=== PATIENT | female | born 1970 | race Hispanic/Latino ===

== ENCOUNTER 2018-05-04 17:07 | Observation (INO) | payer BC ==
[~2018-05-04] VITALS: Ht 152.4 cm; Wt 93.0 kg
[~2018-05-04 17:07] MED LIST: ATENOLOL50 MG PO; AZITHROMYCIN250 MG PO; BENZONATATE100 MG PO; FEXOFENADINE H180 MG PO; FLUTICASONE PRO16 GM; HYDROCODONE-AP1 EA17 PO; MOBIC7.5 M1 PO; PEPCID20 MG PO; REGLAN10 MG PO; TYLENOL WITH C1 EACH PO; Z.0.ARAVA20 MG PO; Z.0.CELEXA20 MG PO; Z.0.LISINOPRIL10 MG PO
[2018-05-04] MEDS ORDERED: ASPIRIN 81 MG CHEW TAB PO ONE (17:45)
[2018-05-04 18:46] LABS: BASOPHILS % 0.3 % (0.0-1.0); EOSINOPHILS # (AUTO) 0.1 (0.0-0.4); EOSINOPHILS % 0.7 % (0.0-6.0); HEMATOCRIT 40.1 % (34.2-44.1); HEMOGLOBIN 12.9 g/dL (12.0-16.0); LYMPHOCYTES # (AUTO) 2.9 (1.0-3.2); MEAN CORPUSCULAR HEMOGLOBIN 27.2 pg (28-32); MEAN CORPUSCULAR HGB CONC 32.2 g/dL (31-35); MEAN CORPUSCULAR VOLUME 84.6 fL (81-99); MONOCYTES # (AUTO) 0.5 (0.2-0.8); MONOCYTES % 6.2 % (4.4-11.3); NEUTROPHILS # (AUTO) 5.2 (2.1-6.9); NEUTROPHILS % 59.6 % (38.7-80.0); PLATELET COUNT 273 x10e3/uL (140-360); RED BLOOD COUNT 4.74 x10e6/uL (3.6-5.1)
--- NOTE | 2018-05-04 19:04 | Diagnostic Imaging Report ---
Examination: Single AP view of the chest. COMPARISON: None. INDICATION: Chest AP DISCUSSION: Lines/tubes: None. Lungs: The lungs are well inflated and clear. No pneumonia or pulmonary edema. Pleura: No pleural effusion or pneumothorax. Heart and mediastinum: The heart and the mediastinum are unremarkable. Bones and soft tissues: No acute bony abnormalities. IMPRESSION: 1. No acute cardiopulmonary abnormalities. Signed by: Dr. Mingo Mayes M.D. on 05/04/2018 7:01 PM
[2018-05-04 19:05] LABS: ALANINE AMINOTRANSFERASE 33 IU/L (0-55); ALBUMIN 4.2 g/dL (3.5-5.0); ALBUMIN/GLOBULIN RATIO 1.1 (0.8-2.0); ALKALINE PHOSPHATASE 74 IU/L (40-150); BLOOD UREA NITROGEN 12 mg/dL (7-26); BUN/CREATININE RATIO 17 (6-25); CALCIUM 9.6 mg/dL (8.4-10.2); CARBON DIOXIDE 21 mmol/L (22-29); CHLORIDE 103 mmol/L (98-107); CREATINE KINASE 58 IU/L (29-168); EST GLOMERULAR FILTRATION RATE > 60 ML/MIN (60-); GLUCOSE 108 mg/dL (74-118); SODIUM 137 mmol/L (136-145)
[2018-05-04] MEDS ORDERED: NITROGLYCERIN 0.4 MG SUBL SL PRN (20:00)
[2018-05-04] MEDS ORDERED: FLUTICASONE PROPIONATE NASAL SPRAY NS PRN (20:00)
[2018-05-04] MEDS ORDERED: MORPHINE SULFATE 2 MG/ML SYR IV PRN (20:00)
[2018-05-04] MEDS ORDERED: ONDANSETRON HCL INJ 2 MG/ML VIAL IV PRN (20:00)
[2018-05-04] MEDS ORDERED: HYDRALAZINE HCL 20 MG/ML VIAL IV PRN (20:00)
[2018-05-04] MEDS: FAMOTIDINE 20 MG/2 ML VIAL IV SCH (20:47)
[2018-05-04] MEDS ORDERED: ACETAMINOPHEN/CODEINE 300MG - 30MG TAB PO PRN (22:00)
[2018-05-04 23:15] VITALS: BP 153/70
[2018-05-05 03:43] LABS: CREATINE KINASE 48 IU/L (29-168)
[2018-05-05 04:04] LABS: CHOL/HDL RATIO 4.9 (3.0-3.6)
[2018-05-05 05:30] VITALS: BP 116/55
[2018-05-05 07:53] VITALS: BP 129/60
[2018-05-05 08:39] LABS: CHOL/HDL RATIO 4.5 (3.0-3.6)
[2018-05-05 08:59] LABS: THYROID STIMULATING HORMONE 2.741 uIU/mL (0.350-4.940)
[2018-05-05] MEDS ORDERED: ATENOLOL 50 MG TAB PO SCH ×2 (09:00)
[2018-05-05] MEDS ORDERED: LEFLUNOMIDE PO SCH (09:00)
[2018-05-05] MEDS ORDERED: ASPIRIN 81 MG ENTERIC COATED PO SCH (09:00)
[2018-05-05] MEDS: FAMOTIDINE 20 MG/2 ML VIAL IV SCH (09:01)
--- NOTE | 2018-05-05 09:35 | Consultation ---
DATE OF CONSULTATION: May 04, 2018 CARDIOLOGY CONSULTATION REASON FOR CONSULTATION: Chest pain. CONSULTING PHYSICIAN: Dr. Theodore HPI: This is a pleasant 48-year-old female that presented with uncontrolled high blood pressure. She was sent from [facility] due to high blood pressure to the emergency room for further evaluation. In the ER, also she started complaining of left-sided chest pain on a scale of 4/10 that radiated to her neck. She denied any palpitation, any shortness of breath, any headache, or diaphoresis. Troponin times 2 was negative. EKG showed normal sinus rhythm with no S/T abnormalities. Chest x-ray showed no cardiopulmonary abnormalities. PAST MEDICAL HISTORY: High blood pressure, obesity, fibromyalgia, and arthritis. PAST SURGICAL HISTORY: and hysterectomy. FAMILY HISTORY: Positive for hypertension. SOCIAL HISTORY: No smoking. No drinking. She lives at home with her . MEDICATIONS: She was on atenolol, Arava, and fluticasone, and Tylenol No. 3. ALLERGIES: SHE IS ALLERGIC TO PNEUMOCOCCAL VACCINE. REVIEW OF SYSTEMS: Negative except as mentioned above. PHYSICAL EXAMINATION VITAL SIGNS: Temperature 97, heart rate 52, blood pressure 116/55, respirations 18, oxygen saturation 97% on room air. GENERAL: She is awake, alert and oriented times 3. HEENT: Mucous membranes moist. NECK: Supple. LUNGS: Bilateral clear to auscultation. CARDIOVASCULAR: S1 and S2 present. ABDOMEN: Soft. NEUROLOGICAL: Intact. EXTREMITIES: With no edema. LABS: Sodium 137, potassium 4, chloride 103, CO2 21, BUN 12, creatinine 0.7, glucose 108. White blood cells 8.69, hemoglobin 12.9, hematocrit 40.1, and platelets 273,000. IMPRESSION 1. Hypertension. 2. Atypical chest pain. 3. Obesity. 4. History of fibromyalgia and arthritis. ASSESSMENT AND PLAN 1. Will go ahead and get serial cardiac enzymes. 2. Pending echo to assess the LV and the valve function. 3. Will check TSH and lipid panel. 4. Heart rate is in the 50s. Will go ahead and decrease atenolol from 50 mg to 25 mg. She has been counseled on weight reduction. Further cardiac workup pending clinical course. Thank you for this consultation. DICTATED BY CATHERINE SULTANA NP Job#: [id number] DELICIA
[2018-05-05 11:48] LABS: CREATINE KINASE 56 IU/L (29-168)
[2018-05-05 11:52] VITALS: BP 165/80
[2018-05-05] MEDS ORDERED: LOSARTAN POTASSIUM 25 MG TAB PO SCH (13:45)
[2018-05-05 16:01] VITALS: BP 169/74
[2018-05-05] MEDS ORDERED: LOSARTAN POTASS25 MG PO (16:21)
[2018-05-05 18:37] VITALS: BP 169/89
--- OUTSIDE RECORDS SUMMARY | 2018-05-09 13:14 | XMS REPORT ---
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 Allergies, Adverse Reactions, Alerts This patient has no known allergies or adverse reactions. Medications This patient has no known medications. Results Test Description Test Time Test Comments Text Results Atomic Results Result Comments CHEST SINGLE (PORTABLE) 2018-05-04 18:57:[address] [address] Patient Name: KIMBERLY ROMERO MR #: [id number] : 1970 Age/Sex: 48/F Req #: [id number] Adm Physician: Ordered by: RUDOPLH BRISCOE MD Report #: [id number] Location: ER Room/Bed: Procedure: [id number] DX/CHEST SINGLE (PORTABLE) Exam Date: 05/04/18 Exam Time: 1845 REPORT STATUS: Signed Examination: Single AP view of the chest. COMPARISON: None. INDICATION: Chest AP DISCUSSION: Lines/tubes: None. Lungs: The lungs are well inflated and clear. No pneumonia or pulmonary edema. Pleura: No pleural effusion or pneumothorax. Heart and mediastinum: The heart and the mediastinum are unremarkable. Bones and soft tissues: No acute bony abnormalities. IMPRESSION: 1. No acute cardiopulmonary abnormalities. Signed by: Dr. Irving Stuart M.D. on 05/04/2018 7:01 PM Dictated By: IRVING STUART MD 00 Transcribed By: LINDEN on 05/04/181900 COPY TO: RUDOLPH BRISCOE MD
--- NOTE | 2018-07-03 10:26 | Discharge Summary ---
FINAL DIAGNOSIS: Atypical chest pain, no acute myocardial infarction. SECONDARY DIAGNOSES 1. Uncontrolled hypertension, better. 2. Morbid obesity. RESIDENT SERVICES MANAGER: Dr. Burgos, cardiology. PROCEDURES/STUDIES PERFORMED: Echocardiogram, which was benign. HISTORY: Per H&P. HOSPITAL COURSE: Patient was evaluated by cardiology. Since she did not have acute myocardial infarction with 3 negative troponins, we felt comfortable for her to be discharged home. She will follow up with [facility] for outpatient stress test. I have informed her [facility] PCP about this as far as her uncontrolled hypertension. Patient was put on losartan instead of lisinopril. Her blood pressure got better. CONDITION ON DISCHARGE: Stable. DISCHARGE MEDICATIONS: Please see medication reconciliation form. BERNADETTE ZIMMER M.D. Job#: [id number] [place] cc:ALICIA ERNST M.D., [facility]
== END 2018-05-05 18:43 | disposition home or self-care (01) ==
LOC: ER 17:07 → ERHOLD 19:48 → MED/SURG 22:36
PROVIDERS: ADMIT Internal Medicine; ATTEND Internal Medicine
DX: R07.89 Other chest pain (principal); M79.7 Fibromyalgia; I10 Essential (primary) hypertension; Z88.7 Allergy status to serum and vaccine; M06.9 Rheumatoid arthritis, unspecified; E66.01 Morbid (severe) obesity due to excess calories; Z68.41 Body mass index [BMI] 40.0-44.9, adult
CPT/HCPCS: 36415 ×2; 71045; 80053; 80061; 82550 ×2; 82553 ×2; 84443; 84484 ×2; 85025; 93005; 93306; 99284; G0378 ×2; J0360

== ENCOUNTER 2019-02-13 16:38 | Observation (INO) | payer BC ==
[~2019-02-13] VITALS: Ht 152.4 cm; Wt 93.0 kg
[~2019-02-13 16:38] MED LIST changes: +LOSARTAN POTASS25 MG PO
[2019-02-13] MEDS ORDERED: HYDRALAZINE HCL 20 MG/ML VIAL IV STA (17:03)
[2019-02-13 17:05] LABS: BASOPHILS % 0.4 % (0.0-1.0); EOSINOPHILS # (AUTO) 0.1 (0.0-0.4); EOSINOPHILS % 1.1 % (0.0-6.0); HEMATOCRIT 41.8 % (34.2-44.1); HEMOGLOBIN 13.5 g/dL (12.0-16.0); LYMPHOCYTES # (AUTO) 3.8 (1.0-3.2); LYMPHOCYTES % 33.4 % (18.0-39.1); MEAN CORPUSCULAR HEMOGLOBIN 27.7 pg (28-32); MEAN CORPUSCULAR HGB CONC 32.3 g/dL (31-35); MEAN CORPUSCULAR VOLUME 85.7 fL (81-99); MONOCYTES # (AUTO) 0.6 (0.2-0.8); NEUTROPHILS # (AUTO) 6.8 (2.1-6.9); NEUTROPHILS % 59.8 % (38.7-80.0); PLATELET COUNT 287 x10e3/uL (140-360); RED BLOOD COUNT 4.88 x10e6/uL (3.6-5.1); RED CELL DISTRIBUTION WIDTH 13.7 % (11.7-14.4)
[2019-02-13 17:22] LABS: ALANINE AMINOTRANSFERASE 25 IU/L (0-55); ALBUMIN 4.3 g/dL (3.5-5.0); ALKALINE PHOSPHATASE 87 IU/L (40-150); ANION GAP 14.6 mmol/L (8-16); BLOOD UREA NITROGEN 15 mg/dL (7-26); BUN/CREATININE RATIO 21 (6-25); CALCIUM 9.8 mg/dL (8.4-10.2); CARBON DIOXIDE 28 mmol/L (22-29); CHLORIDE 101 mmol/L (98-107); CREATINE KINASE 48 IU/L (29-168); CREATININE, SERUM 0.73 mg/dL (0.57-1.11); EST GLOMERULAR FILTRATION RATE > 60 ML/MIN (60-); POTASSIUM 3.6 mmol/L (3.5-5.1); SODIUM 140 mmol/L (136-145)
[2019-02-13 17:35] LABS: GLUCOSE 125 mg/dL (74-118)
--- NOTE | 2019-02-13 18:35 | Diagnostic Imaging Report ---
History: Dizziness, hypertension. Comparison studies: None Technique: Axial images were obtained from the skull base to the vertex. Coronal and sagittal reconstructions obtained from the axial data. Dose modulation, iterative reconstruction, and/or weight based adjustment of the mA/kV was utilized to reduce the radiation dose to as low as reasonably achievable. Findings: Scalp/skull: No abnormalities. No fractures, blastic or lytic lesions. Extra-axial spaces: No masses. No fluid collections. Brain sulci: Appropriate for age. Ventricles: Normal in size and configuration. No hydrocephalus. Parenchyma: No abnormal densities. No masses, hemorrhage, acute or chronic cortical vascular insults. Sellar/suprasellar region: No abnormalities Craniocervical junction: Patent foramen magnum. No Chiari one malformation. IMPRESSION: No abnormalities . Signed by: DR Boyd Serrato M.D. on 02/13/2019 6:31 PM
[2019-02-13] MEDS ORDERED: ASPIRIN 81 MG CHEW TAB PO ONE (18:45)
[2019-02-13 19:40] VITALS: BP 154/67
--- NOTE | 2019-02-13 19:40 | NUR ---
patient is a new admit that arrived via stretcher. patient is awake and talking. patient has been assisted into the bed. bed is in the lowest position and call castro is within reach. will continue to monitor patient.
[2019-02-13] MEDS ORDERED: NITROGLYCERIN 0.4 MG SUBL SL PRN (20:00)
--- NOTE | 2019-02-13 20:00 | NUR ---
spoke with consulted physician regarding STATA consult. received new orders for state ECG, STAT cardiac markers, and STAT echocardiogram. also received orders for prn nitroglycerin, and one time dose of morphine 2mg. Will continue to monitor patient.
--- NOTE | 2019-02-13 20:10 | Diagnostic Imaging Report ---
EXAMINATION: CHEST 2 VIEWS INDICATION: ^CP ^[id number] ^1822 COMPARISON: Chest radiograph 05/04/2018 FINDINGS: PA and lateral views TUBES and LINES: None. LUNGS: Lungs are well inflated. Bilateral central pulmonary vascular congestion. Bibasilar atelectasis. PLEURA: No pleural effusion or pneumothorax. HEART AND MEDIASTINUM: The cardiac silhouette is mildly enlarged. BONES AND SOFT TISSUES: No acute osseous lesion. Soft tissues are unremarkable. UPPER ABDOMEN: No free air under the diaphragm. IMPRESSION: Bilateral central pulmonary vascular congestion. Signed by: Dr. Bri Lara M.D. on 02/13/2019 8:06 PM
[2019-02-13] MEDS ORDERED: MORPHINE SULFATE 2 MG/ML SYR 1ML IV NR (20:30)
[2019-02-13] MEDS ORDERED: DICLOFENAC SOD100 MG PO (20:39)
[2019-02-13] MEDS ORDERED: METOPROLOL TART50 MG PO (20:39)
[2019-02-13] MEDS ORDERED: BACLOFEN10 MG PO (20:39)
[2019-02-13 20:59] LABS: CREATINE KINASE 42 IU/L (29-168)
--- NOTE | 2019-02-13 21:30 | NUR ---
consulted physician notified of laboratory results, received new orders for zofran IV and tylenol 100 mg iv one time only. will continue to monitor patient.
[2019-02-13] MEDS ORDERED: ACETAMINOPHEN 1000 MG/100 ML IV STA (22:29)
[2019-02-13] MEDS ORDERED: ONDANSETRON HCL INJ 2MG/ML 2ML 2 MG/ML VIAL IV PRN (22:30)
[2019-02-13] MEDS: MORPHINE SULFATE 2 MG/ML SYR 1ML IV NR (23:16)
[2019-02-14] VITALS: BP 114/56
[2019-02-14] MEDS: MORPHINE SULFATE 2 MG/ML SYR 1ML IV NR (01:36)
[2019-02-14 04:00] VITALS: BP 109/61
--- NOTE | 2019-02-14 06:42 | NUR ---
report given to day nurse. patient is resting comfortably in bed. bed is in lowest position and call castro is within reach.
[2019-02-14 07:23] LABS: CREATINE KINASE MB 0.4 ng/mL (0-5.0)
[2019-02-14 07:30] VITALS: BP 146/69
[2019-02-14] MEDS ORDERED: ASPIRIN 325 MG TAB EC PO SCH (09:00)
--- NOTE | 2019-02-14 09:50 | NUR ---
Visit made by the Spiritual Care Department Pastoral Visitor, Azucena Barraza. Pt out of room and no family at bedside. A card was left at the bedside to indicate a missed visit from a member of the Spiritual Care team and to inform the pt and family of the availability of a House Worker General 24 hours a day/7 days a week. A director of quality control will follow up as able. MAYRA GOEL House Worker General Spiritual Care Department O: [phone] Pager: [phone] ([phone] number calling from)
[2019-02-14] MEDS ORDERED: REGADENOSON 0.4 MG/5 ML SYR IV ONE (10:24)
[2019-02-14] MEDS ORDERED: METOPROLOL SUCCINATE 25 MG TAB XL PO SCH (12:45)
[2019-02-14 13:00] VITALS: BP 145/75
[2019-02-14 15:07] LABS: CREATINE KINASE 36 IU/L (29-168)
--- NOTE | 2019-02-14 15:13 | Consultation ---
DATE OF CONSULTATION: 02/14/2019 Cardiology Consultation CONSULTING PHYSICIAN: Derrek Odell MD, Interventional Cardiology. REASON FOR CONSULTATION: Chest pain. HISTORY OF PRESENT ILLNESS: Ms. Castillo is a pleasant 49-year-old woman, who presents for complaints of chest discomfort described as pressure-like, midsternal, constant, lasting several hours, worse with cough and movement, unaffected by exertion. Initial EKG was noted to have sinus rhythm with PACs, nonspecific repolarization abnormalities, right bundle-branch block. Cardiac enzymes have been negative. Symptoms did partially improve with nitroglycerin as well as with acetaminophen and morphine throughout the night. She feels better currently. She describes a past history of fibromyalgia and prior history of costochondritis. Symptoms are somewhat atypical that is the reason why she seek further evaluation in the hospital. REVIEW OF SYSTEMS: A 12-system review is negative except for as noted above. PAST MEDICAL HISTORY: Significant for as noted above. Fibromyalgia, obesity. SOCIAL HISTORY: Denies smoking, alcohol, or drugs. FAMILY HISTORY: Noncontributory. PHYSICAL EXAMINATION: VITAL SIGNS: Temperature 96.2, heart rate 60, blood pressure 146/69, respiratory rate 16, O2 saturation 99%. BMI 40.03. GENERAL: In no acute distress, alert. NECK: No JVD. CHEST: Clear to auscultation. CARDIOVASCULAR: Regular rate and rhythm. Normal S1 and S2. No S3 or S4. No murmurs or rubs. ABDOMEN: Soft, nontender, nondistended. EXTREMITIES: No cyanosis, clubbing, or edema. Warm distal extremities. CARDIOVASCULAR MEDICATIONS: Reviewed. 1. Nitroglycerin 0.4 mg. 2. Aspirin 325 mg. 3. Morphine p.r.n. STUDIES: Reviewed. Serial cardiac enzymes negative x3. BNP within normal limits. Sodium 140, potassium 3.6, chloride 101, bicarbonate 28. BUN 15, creatinine 0.7. White blood cells 11.3, hemoglobin 13.5, platelets 287. AST 16, ALT 25, alkaline phosphatase 87, total bilirubin 0.2. ASSESSMENT: A 49-year-old woman with atypical chest pain, morbid obesity, history of fibromyalgia, presents with uncontrolled hypertension. RECOMMENDATIONS: 1. Initiate metoprolol 25 mg at bedtime p.o. 2. Echocardiogram reviewed, preserved left ventricular systolic function with mild LVH noted. Stress test has been ordered and will be done this morning. We will follow up with reports of study once complete. If reassuring, okay to discharge with outpatient followup in 6 weeks from Cardiology standpoint and with primary doctor as outpatient, Dr. Souza to consider further evaluation for other etiologies for chest discomfort. Derrek Odell MD AFMark/MODDanna /[id number]
[2019-02-14 16:42] VITALS: BP 182/91
--- NOTE | 2019-02-14 16:46 | NUR ---
PATIENT'S BLOOD PRESSURE IS 182/91, CALLED [facility] ROMERO, LEFT MESSAGE WITH ASSISTANT SOFTBALL COACH.
--- NOTE | 2019-02-14 17:05 | NUR ---
CALLED DR. PERSON'S OFFICE AGAIN REGARDING ELEVATED BLOOD PRESSURE, HEAVY EQUIPMENT SUPERVISOR STATED THAT HE HAS BEEN PAGED.
[2019-02-14] MEDS ORDERED: FLUTICASONE PROPIONATE NASAL SPRAY NS PRN (17:30)
[2019-02-14] MEDS ORDERED: HYDRALAZINE HCL 20 MG/ML VIAL IV PRN (17:45)
--- NOTE | 2019-02-14 17:52 | NUR ---
SPOKE TO Lynda ROMERO, HE STATED, "THE STRESS TEST LOOKED FINE, SHE CAN GO HOME FROM MY STAND POINT, I DIDN'T KNOW THAT SHE TOOK METOPROLOL AT HOME, GIVE HER METOPROLOL 50 MG, IF IT IS STILL HIGH THEN SHE CAN HAVE HYDRALAZINE 10 MG IV Q4, ."
[2019-02-14] MEDS ORDERED: METOPROLOL TARTRATE 50 MG TAB PO SCH (18:00)
--- NOTE | 2019-02-14 20:19 | Operative Report ---
DATE OF PROCEDURE: SURGEON: Derrek Odell MD ACCESSION NUMBER: [id number]. PROCEDURE INDICATION: Chest pain and abnormal EKG. PROCEDURE PERFORMED: Single day technetium and Lexiscan myocardial perfusion SPECT study. INTERPRETING PHYSICIAN: Derrek Odell M.D., Interventional Cardiology. INTERPRETATION: At rest, heart rate was 76, blood pressure 164/75. Rest EKG shows normal sinus rhythm with incomplete right bundle branch and nonspecific repolarization abnormality. After Lexiscan was administered, heart rate tawnya to 100 beats per minute and blood pressure decreased to 154/69. There were no significant ST changes or arrhythmias throughout stress or recovery. Myocardial perfusion reveals normal rest and stress perfusion and gated images demonstrate preserved left ventricular systolic function with normal regional wall motion and left ventricular ejection fraction of 70%. CONCLUSION: 1. Normal hemodynamic response to Lexiscan stress. 2. Normal electrocardiographic response to Lexiscan stress. 3. Normal myocardial perfusion at rest and stress. 4. Preserved left ventricular systolic function, normal regional wall motion, and left ventricular ejection fraction of 70%. Derrek Odell MD AFV/MODL /[id number]
[2019-02-14] MEDS ORDERED: BACLOFEN 10 MG TAB PO SCH (21:00)
[2019-02-15] MEDS ORDERED: METOCLOPRAMIDE HCL 10 MG TAB PO SCH (07:30)
[2019-02-15] MEDS ORDERED: FAMOTIDINE 20 MG TAB PO SCH (07:30)
[2019-02-15] MEDS ORDERED: LORATADINE 10 MG TAB PO SCH (09:00)
== END 2019-02-14 18:26 | disposition home or self-care (01) ==
LOC: ER 16:38 → ERHOLD 18:15 → IMCU 19:30
DX: R07.89 Other chest pain (principal); I10 Essential (primary) hypertension; I16.9 Hypertensive crisis, unspecified; Z88.7 Allergy status to serum and vaccine; K21.9 Gastro-esophageal reflux disease without esophagitis; E66.01 Morbid (severe) obesity due to excess calories; Z68.41 Body mass index [BMI] 40.0-44.9, adult; M79.7 Fibromyalgia
CPT/HCPCS: 36415 ×2; 70450; 71046; 78452; 80053; 82550 ×2; 82553 ×2; 83880; 84484 ×2; 85025; 93005; 93017; 93306; 99284; A9502; G0378 ×2; J0131; J0360; J2270; J2405; J2785; J8597

== ENCOUNTER 2025-03-11 15:52 | Emergency (ER) | payer BC ==
[~2025-03-11] VITALS: Ht 154.9 cm; Wt 90.5 kg
[~2025-03-11 15:52] MED LIST changes: +BACLOFEN10 MG PO; +DICLOFENAC SOD100 MG PO; +METOPROLOL TART50 MG PO
[2025-03-11] MEDS: KETOROLAC TROMETHAMINE 60 MG/2 ML VIAL IM ONE (16:58)
[2025-03-11 18:53] VITALS: PULSE 54; RESP 18; TEMP 98.7; O2SAT 100
== END 2025-03-11 18:53 | disposition home or self-care (01) ==
LOC: FSED 16:04
DX: M54.2 Cervicalgia (principal); M54.6 Pain in thoracic spine; R51.9 Headache, unspecified; R45.82 Worries; W06.XXXA Fall from bed, initial encounter; Y92.89 Other specified places as the place of occurrence of the external cause
CPT/HCPCS: 70450; 72125; 72128; 96372; 99283; J1885